=== PATIENT | female | born 1985 | race Caucasian/White ===

== ENCOUNTER 2023-06-25 14:19 | Emergency (ER) | payer MEDICAID ==
[~2023-06-25] VITALS: Ht 162.6 cm; Wt 72.6 kg
[2023-06-25 15:41] VITALS: BP 132/76; PULSE 89; RESP 18; TEMP 97; O2SAT 98
[2023-06-25] MEDS ORDERED: LIDOCAINE MPF 1% 10 MG/ML VIAL INJ ONE (16:05)
[2023-06-25] MEDS ORDERED: BACITRACIN OINT 500 UNITS/GM PKT TP ONE (17:10)
== END 2023-06-25 17:50 | disposition home or self-care (01) ==
LOC: MED 14:19
DX: S61.216A Laceration without foreign body of right little finger without damage to nail, initial encounter (principal); W26.0XXA Contact with knife, initial encounter; Y93.89 Activity, other specified; Y92.89 Other specified places as the place of occurrence of the external cause; Y99.8 Other external cause status
CPT/HCPCS: 12001; 90471; 90715; 99283; J2001

== ENCOUNTER 2023-07-04 16:44 | Emergency (ER) | payer MEDICAID ==
[~2023-07-04] VITALS: Ht 149.9 cm; Wt 73.5 kg
[2023-07-04 17:47] VITALS: BP 135/85; PULSE 71; RESP 16; TEMP 98.1; O2SAT 100
== END 2023-07-04 19:32 | disposition home or self-care (01) ==
LOC: MED 16:44
DX: S61.216A Laceration without foreign body of right little finger without damage to nail, initial encounter (principal); R03.0 Elevated blood-pressure reading, without diagnosis of hypertension; Z48.00 Encounter for change or removal of nonsurgical wound dressing; X58.XXXA Exposure to other specified factors, initial encounter; Y93.89 Activity, other specified; Y92.89 Other specified places as the place of occurrence of the external cause; Y99.8 Other external cause status
CPT/HCPCS: 99283